=== PATIENT | male | born 1975 | race Caucasian/White ===

== ENCOUNTER 2022-06-23 08:20 | Outpatient (REF) | payer OTHER, SELFPAY ==
[2022-06-23 11:27] LABS: Bacteria Urine None Seen (None Seen); Hyaline Casts Urine 0-2 /LPF (0-2); RBC Urine 0-2 /HPF (0-2); Squamous Epithelial Cell Urine 0-2 /HPF (0-2); WBC Urine 0-5 /HPF (0-5)
[2022-06-23 11:28] LABS: MANUAL DIFF FLAG NO
[2022-06-23 11:39] LABS: Basophils Absolute Auto 0.1 X10*3/uL (0.0-0.2); Basophils Percent Auto 0.9 % (0-2); Eosinophils Absolute Auto 0.1 X10*3/uL (0.0-0.4); Hematocrit 43.1 % (42.0-52.0); Hemoglobin 14.6 g/dl (14.0-18.0); Imm Gran Abs Auto 0.01 X10*3/uL (0.00-0.03); Imm Gran Pct Auto 0.2 % (0.0-0.4); Lymphocytes Absolute Auto 1.7 X10*3/uL (1.2-4.9); Lymphocytes Percent Auto 30.9 % (20-40); Mean Corpuscular HGB Conc 33.9 g/dl (31.0-36.0); Mean Corpuscular Hemoglobin 30.2 pg (27.0-33.0); Mean Platelet Volume 10.7 fL (9.4-12.4); Monocytes Absolute Auto 0.6 X10*3/uL (0.1-1.2); Monocytes Percent Auto 10.1 % (2-11); Neutrophils Absolute Auto 3.2 x10*3/uL (2.0-8.3); Neutrophils Percent Auto 55.9 % (45-73); Platelet Count 193 X10*3/uL (160-400); Red Blood Count 4.84 X10*6/uL (4.60-5.80); Red Cell Distribution Width 12.5 % (11.0-16.0); White Blood Count 5.6 X10*3/uL (4.8-10.8)
[2022-06-23 11:40] LABS: Appearance Urine Clear; Color Urine Yellow; Glucose Urine UA Negative (Negative); Leukocyte Esterase Urine Negative (Negative); Nitrite Urine Negative (Negative); Urine Blood Negative (Negative); Urine Ketones Negative (Negative); Urine Protein Negative (Neg-Trace)
[2022-06-23 12:14] LABS: Alanine Aminotransferase 32 U/L (0-40); Albumin Level 4.4 g/dL (3.5-5.0); Alkaline Phosphatase 56 U/L (39-117); Anion Gap 15 (12-20); Aspartate Amino Transferase 23 U/L (5-37); Bilirubin Total 0.8 mg/dL (0.0-1.0); Blood Urea Nitrogen 15 mg/dL (9-16); Calcium 9.5 mg/dL (8.4-10.2); Carbon Dioxide 28 mmol/L (22-29); Chloride 104 mmol/L (96-108); Cholesterol 234 mg/dL; Estimated Glomerular Filt Rate > 60; Glucose Fasting 112 mg/dL (60-99); HDL Cholesterol 46 mg/dL; LDL Cholesterol Calculated 146 mg/dl; Sodium 143 mmol/L (135-145); Total Protein 7.4 g/dL (6.5-8.0); Triglycerides 211 mg/dL
== END 2022-06-23 08:21 | disposition home or self-care (01) ==
LOC: HO.HMGCLDS 08:20
PROVIDERS: PCP Internal Medicine; Visit Provider Internal Medicine
DX: Z00.00 Encounter for general adult medical examination without abnormal findings (principal)
CPT/HCPCS: 36415; 80053; 80061; 81001; 85025

== ENCOUNTER → 2023-02-04 13:53 | Outpatient (BNVA) | payer OTHER, SELFPAY | PROVIDERS: PCP Internal Medicine; Visit Provider Physician Assistant | DX: Z13.89 Encounter for screening for other disorder (principal) ==

== ENCOUNTER 2023-03-10 14:09 | Outpatient (REF) | payer OTHER, SELFPAY ==
--- NOTE | ~2023-03-10 | MR_ITS ---
MR LUMBAR SPINE WITHOUT CONTRAST CLINICAL INFORMATION: Intervertebral disc displacement/lumbar region. COMPARISON: Lumbar spine radiographs 02/11/2017. TECHNIQUE: MRI of the lumbar spine was obtained using routine sequences without contrast. FINDINGS: 5 nonrib-bearing lumbar-type vertebral bodies. Lumbar alignment is normal. The vertebral body heights are maintained. There is mild disc volume loss and there is disc desiccation at L1-L2, L4-L5, and L5-S1. There Modic type I endplate signal changes at L4-L5. No additional bone marrow edema. No acute fractures. Chronic endplate Schmorl's nodes throughout the lumbar spine. Conus terminates at the L1 level. Partially imaged simple left renal cyst for which no further imaging follow-up is warranted. L1-L2: There is a diffuse annular disc bulge with a superimposed left paracentral disc protrusion that compresses the traversing left L2 nerve root within the left subarticular zone and that results in moderate to severe left-sided central canal stenosis. There is mild bilateral facet arthropathy. L2-L3: There is a diffuse annular disc bulge and there is moderate left and mild right facet arthropathy. There is no central canal stenosis and there is no foraminal stenosis. L3-L4: Diffuse annular disc bulge with a superimposed large far left lateral disc protrusion that results in moderate left-sided foraminal stenosis and compression of the extraforaminal left L3 nerve root. No central canal stenosis. Mild right-sided foraminal encroachment. L4-L5: Fused annular disc bulge and moderate bilateral facet arthropathy and ligamentum flavum thickening. Findings in concert result in mild central canal stenosis and mild to moderate bilateral foraminal encroachment. L5-S1: There is a broad-based right paracentral disc protrusion that compresses the traversing right S1 nerve root within the right subarticular zone. Background annular disc bulge and bilateral facet arthropathy resulting in severe right and moderate left foraminal stenosis with compression of the exiting right L5 nerve root. MR/MR lumbar spine wo con IMPRESSION: - At L1-L2, a left paracentral disc protrusion compresses the traversing left L2 nerve root within the left subarticular zone and results in moderate to severe left-sided central canal stenosis. - At L3-L4, a large far left lateral disc protrusion results in moderate left-sided foraminal stenosis and compression of the extraforaminal left L3 nerve root. - At L5-S1, a broad-based right paracentral disc protrusion compresses the traversing right S1 nerve root within the right subarticular zone and multifactorial degenerative changes result in severe right and moderate left foraminal stenosis with compression of the exiting right L5 nerve root.
--- NOTE | ~2023-03-10 | XR_ITS ---
EXAMINATION: Pre-MRI screening x-ray CLINICAL INFORMATION: Pre-MRI COMPARISON: None. TECHNIQUE: 3 views of the orbits FINDINGS: No radiopaque foreign body about the orbits is seen. Visualized bony structures are normal. Paranasal sinuses are clear. XR/XR pre mri screening IMPRESSION: Unremarkable examination.
== END 2023-03-10 14:10 | disposition home or self-care (01) ==
LOC: HO.MRI 14:09
PROVIDERS: PCP Internal Medicine; Visit Provider Physician Assistant
DX: M51.26 Other intervertebral disc displacement, lumbar region (principal)
CPT/HCPCS: 72148

== ENCOUNTER 2023-06-17 06:05 | Day surgery (SDC) | payer OTHER, SELFPAY ==
[2023-06-09 11:30] VITALS: BP 121/82; PULSE 67; RESP 20; O2SAT 98; BMI 28.9
--- NOTE | 2023-06-09 12:01 | HO.ANESPROP2 ---
Documented by User: Mary Kate Mitchell NP 06/15/23 14:52 HPI - Anesthesia Eval Consult details Narrative: 48yo M for Left Far lateral L3-4 Lumbar Laminectomy/discectomy, 06/17/23 Otherwise healthy No recent illness No CP/SOB with >4 mets PMFSH Active Problems Active Problems: All Active Problems (Updated 06/09/23 @ 11:16 by Aurora Espana RN) Annual physical exam (Acute) Hyperlipidemia (Acute) Hyperglycemia (Acute) Spinal stenosis (Acute) Lumbar disc herniation (Acute) Past Medical History Medical History Arthritis Back pain Numbness Family History Family History (Updated 06/23/22 @ 08:19 by Liberty Castaneda MD) Father CVA (cerebral vascular accident), Onset Age: 50 Mother Urethral CA Surgical History Surgical History History of esophagogastroduodenoscopy (EGD) Social History Social History Household Members Other:: , 2 CHILDREN (17. 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 If so, by whom?: No Are you DNR?: No Advance Directives: No Advance Directives Information Provided: Yes Advance Directives on File: No Recently lost weight without trying: No Eating poorly because of decreased appetite: No Nutrition Risks: No Nutritional Risk Poor oral hygiene: No service: No Current occupational status: employed Cognitive needs: No Hearing needs: No Vision needs: Yes Meds Allergies Allergy/AdvReac Type Severity Reaction Status Date / Time No Known Allergies Allergy Verified 06/17/23 06:31 Home Medications Medication Instructions Recorded Confirmed Last Taken Type cyclobenzaprine 10 mg tablet 5 mg PO DAILY PRN Muscle Spasm 01/11/23 06/09/23 Unknown History baclofen 10 mg tablet 10 mg PO TID PRN Back Pain 06/09/23 06/09/23 Unknown History ibuprofen 800 mg tablet 800 mg PO Q8H PRN Pain 06/09/23 06/09/23 06/10/23 History meloxicam 15 mg tablet 15 mg PO DAILY PRN Pain 06/09/23 06/09/23 06/10/23 History Exam Exam Date and Time: June 09, 2023 1201 Height,Weight and Vital Signs: Height 5 ft 9 in Weight 88.904 kg Last Vital Signs Pulse 67 06/09/23 11:30 Resp 20 06/09/23 11:30 BP 121/82 06/09/23 11:30 Pulse Ox 98 06/09/23 11:30 O2 Del Method Room Air 06/09/23 11:30 Airway Mallampati Class: III TM Dist: >3cm Neck ROM: Full Loose/Missing/Broken Teeth: Yes (1 pulled molars) Heart: RRR Lungs: CTAB Assessment and Plan Assessment Anesthesia Assessment: Anesthesia Plan Discussed and PAT Visit Documented by User: Osmel Boyd MD 06/17/23 07:22 [facility] Past Medical History Medical History Arthritis Back pain Numbness Family History Family History (Updated 06/23/22 @ 08:19 by Liberty Castaneda MD) Father CVA (cerebral vascular accident), Onset Age: 50 Mother Urethral CA Family history of problems with anesthesia: No Surgical History Surgical History History of esophagogastroduodenoscopy (EGD) History of Problems with Anesthesia: No Social History Social History Household Members Other:: , 2 CHILDREN (17. 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 If so, by whom?: No Are you DNR?: No Advance Directives: No Advance Directives Information Provided: Yes Advance Directives on File: No Recently lost weight without trying: No Eating poorly because of decreased appetite: No Nutrition Risks: No Nutritional Risk Poor oral hygiene: No service: No Current occupational status: employed Cognitive needs: No Hearing needs: No Vision needs: Yes Meds Allergies Allergy/AdvReac Type Severity Reaction Status Date / Time No Known Allergies Allergy Verified 06/17/23 06:31 Home Medications Medication Instructions Recorded Confirmed Last Taken Type cyclobenzaprine 10 mg tablet 5 mg PO DAILY PRN Muscle Spasm 01/11/23 06/09/23 Unknown History baclofen 10 mg tablet 10 mg PO TID PRN Back Pain 06/09/23 06/09/23 Unknown History ibuprofen 800 mg tablet 800 mg PO Q8H PRN Pain 06/09/23 06/09/23 06/10/23 History meloxicam 15 mg tablet 15 mg PO DAILY PRN Pain 06/09/23 06/09/23 06/10/23 History Assessment and Plan Final Anesthetic Review Family History of Problems with Anesthesia: No History of Problems with Anesthesia: No NPO: Yes ASA Class: II Final Preanesthetic Review: No Changes in Pt Med Stat, Meds/Allgs Chart Reviewed, Consent Obtained/Reviewed and Anes Risks/Benef Reviewed Patient Risk: Intermediate Procedure Risk: Intermediate Anesthetic Plan Anesthetic Plan: GA and Agree w/ Assess. and Plan Disposition: Standard PACU
[2023-06-17] VITALS (17 sets, daily range): BP systolic 90–148; BP diastolic 54–91; PULSE 61–77; RESP 11–28; TEMP 36.2–36.4; O2SAT 94–99
--- NOTE | ~2023-06-17 | FL_ITS ---
EXAMINATION: XR FLUOROSCOPY WITH IMAGES CLINICAL INFORMATION: L3-L4 lumbar laminectomy COMPARISON: Lumbar spine x-ray from 2016 and lumbar spine MRI February 2023 TECHNIQUE: FT: 7.7 seconds Images: 1 Dose: 11.6 mGy DAP: N/A *performed by Dr. Gonzales FINDINGS: Single lateral image demonstrates surgical instrument and marker placement at the L3-L4 disc space level. FL/FL guidance in OR IMPRESSION: Fluoroscopy guidance for lumbar spine surgery.
[2023-06-17] MEDS: Lactated Ringers 1,000 ML 100 ML IVCONT (06:20)
--- NOTE | 2023-06-17 06:58 | MHC.SHP ---
Pre-Procedural Eval Section A Date of Service: 06/17/23 Section B Chief Complaint: Other intervertebral disc displacement, lumbar reg Relevant Family History (Specify if Yes): No Allergies: Allergies Allergy/AdvReac Type Severity Reaction Status Date / Time No Known Allergies Allergy Verified 06/17/23 06:31 Review of Systems Sugical H&P ROS: Negative: Constitution, Cardiovascular, Respiratory, Neurological, Psychiatric, Hem-Onc, Allergic/Immunologic, Gastrointestinal, Genitourinary, Musculoskeletal, Integumentary, Endocrine and Eyes/Ears/Nose/Throat Exam Surgical H&P Exam: Not Evaluated: HEENT, Not Evaluated: Heart, Not Evaluated: Lungs, Not Evaluated: Extremities, Not Evaluated: Abdomen, Not Evaluated: Skin and Not Evaluated: Neurological Plan I have reviewed the history and physical and performed a pertinent physical examination on my patient. No changes have occurred unless specified. Plan remains the same, far lateral left L3-4 diskectomy using Metrx tubes Time Spent With Patient Time: Total time managing care of this patient today _10___ minutes.
[2023-06-17] MEDS: methocarbamoL 750 MG TABLET PO (07:01)
[2023-06-17] MEDS: Gabapentin 300 MG CAPSULE PO (07:01)
--- NOTE | 2023-06-17 09:02 | PM.DS ---
DS: Providers Provider Date of Service: 06/17/23 Primary care physician: Liberty Castaneda MD DS: Diagnosis Discharge Diagnosis (1) S/P lumbar microdiscectomy: Status: Acute DS: Summary Time Spent with Patient Time attestation: Total time managing care of this patient today ____ minutes. Discharge coordination time: Less than 30 minutes Quality: Safe Use of Opioids Does Pt have an Active Cancer Diagnosis on the Problem List?: No Quality: Stroke Does the patient have a stroke diagnosis?: No Physical Exam Vital Signs: Vital Signs: Last Vital Signs Temp 97.6 F 06/17/23 06:30 Pulse 75 06/17/23 06:30 Resp 18 06/17/23 06:30 BP 143/91 H 06/17/23 06:30 Pulse Ox 97 06/17/23 06:30 O2 Del Method Room Air 06/17/23 06:30 BMI result Body Mass Index 28.9 Discharge Plan Discharge Patient Disposition: Home, Self-Care Referrals: Liberty Castaneda MD [Primary Care Provider] - 1 Week Discharge Medications: New oxycodone 5 mg tablet 5 mg PO Q6H PRN (Reason: severe pain) Qty: 20 0RF Rx Instructions: Partial Fill upon patient request. Continued baclofen 10 mg tablet 10 mg PO TID PRN (Reason: Back Pain) ibuprofen 800 mg Tablet 800 mg PO Q8H PRN (Reason: Pain) cyclobenzaprine 10 mg tablet 5 mg PO DAILY PRN (Reason: Muscle Spasm) Held meloxicam 15 mg tablet 15 mg PO DAILY PRN (Reason: Pain) Hold Instructions: Resume on 06/24/23. Discharge Orders: Discharge Order (Routine); Ordered 06/17/23 Ordered By: Jose Martines Diet: Advance to usual diet Activity on Discharge: As tolerated Activity Restrictions/Additional Instructions: After your spinal surgery we ask you to observe the following restrictions/guidelines: Activity: It is normal to feel some discomfort as you increase your activity, but that will improve with time. We ask you avoid heavy lifting or acitivities that cause pain. As a general rule, 8lbs is a safe limit for lifting right after surgery. Walk as much as you feel comfortable but not to exhaustion. You will feel extra tired the first few days after surgery. Stay well hydrated. It is OK to walk up and down stairs You may return to driving when you are off narcotics (such as vicodin, oxycodone, dilaudid, etc), and you are back to normal functional capacity. If you have any concerns please check with office before driving. Return to work is specific to each patient and each surgery, so please speak with your doctor/PA at first follow up. Please bring paperwork such as FMLA at that time if you need it filled out. Medications: We will give you a short supply of narcotics after surgery (usually one weeks worth). If you need more please call the office but do not use more than prescribed. You will need to give our office 48 hours notice if you need narcotics refilled and we do not fill narcotics on weekends or evenings. If you are on a narcotic, it is a good idea to take a stool softener such as colace or senna to avoid constipation If you take blood thinner such as aspirin, Plavix, Coumadin, Effient, Eliquis etc for conditions such as Afib, DVT, Pulmonary embolus, coronary disease, stents etc please speak with your surgeon about specific details as to when you can resume these medications. You can resume NSAIDs on post op day 1 (eg: Motrin, Naproxen, etc). Follow up: Please call the office, , after surgery to arrange a 3 week follow up for wound check. Wound Care: You may remove your dressing on the first day after surgery. You may leave open to air. Please do not remove the steri strips underneath. they will fall off on their own in one week. IT IS NORMAL FOR THE WOUND TO OOZE OR BE BLOODY FOR A FEW DAYS AFTER SURGERY. IF THIS HAPPENS JUST PLACE NEW DRESSING OVER IT TO AVOID STAINING CLOTHES. You may shower on post op day # 1 We ask that you do not let the water soak the wound. If it does get wet, just towel dry lightly. Please do not scrub your incision or place any type of chemical/ointment on the wound. No tub baths, pools or jacuzzis for one month. If you have any leaking or redness from your wound, or fevers, please call office
--- NOTE | 2023-06-17 09:06 | P.OP_ITS ---
Operative Note Operative Note Date of Service: 06/17/23 Narrative: Preop diagnosis: lumbar disc herniation L3-4, extraforaminal( far lateral) Postop diagnosis: same Procedure: L3-4 lumbar microdiskectomy, extraforaminal approach with microscope Description of procedure: This 48-year-old male suffering from a left lumbar radiculopathy due to an L3-4 extraforaminallumbar disc herniation compressing the left L3 nerve root. He was offered a lumbar microdiskectomy through an extraforaminal approach. Procedure complications were explained. He was consented. He was brought to the operating room and endotracheally intubated. He was turned in the prone position on Cesar frame. Prepped and drape was done Follow-up by time-out. The lateral border of the L3-4 facet joint was marked on the skin With x-ray. A left paramedian incision was made. The muscle fascia was opened. Sequential dilators were inserted followed by a 18 mm metrx tube. the lateral border of the L3-4 facet joint as well as the transverse process of L3 and L4 were exposed. The microscope was brought in. The lateral part of facet joint was resected with a high-speed drill. The medial border of the L4 pedicle was identified as well as the foramen. I went into the Kambin's triangle and exposed the L3-4 disc. An Annulotomy was done after which with a straight and curved pituitary several fragments of disc herniation were removed. A nerve hook could be easily passed under the L3 nerve root as sign of adequate decompression. Physician assistant tennis professional took over the procedure and performed hemostasis and closure of the incision in 2 layers. Steri-Strips were used to approximate the incision. An Oppsite with tegaderm was used to cover the incision. All sponge needle counts were correct. Patient was extubated and transported in stable this to recovery room. Surgeon: David Gonzales MD Assist: Reza LOMBARDI Anesthesia: general Estimated blood loss: minimal Specimen: none Deposition: Discharge home
[2023-06-17] MEDS: HYDROmorphone HCl 0.5 MG/0.5 ML SYRINGE 0.25 MG IVPUSH ×4 (10:19→10:36)
== END 2023-06-17 12:09 | disposition home or self-care (01) ==
PROVIDERS: PCP Internal Medicine; Visit Provider Neurological Surgery
PROC: (CPT 63056; principal; 2023-06-17 07:30)
DX: M51.26 Other intervertebral disc displacement, lumbar region (principal); G89.29 Other chronic pain; Z79.899 Other long term (current) drug therapy
CPT/HCPCS: 63056; J0131; J0690; J1100; J1170; J1885; J2405

== ENCOUNTER → 2023-06-17 06:05 | Outpatient (BNV) | payer OTHER, SELFPAY | PROVIDERS: PCP Internal Medicine; Visit Provider Physician Assistant | DX: M51.16 Intervertebral disc disorders with radiculopathy, lumbar region (principal) | CPT/HCPCS: 63056 ==

== ENCOUNTER 2023-07-09 12:53 | Outpatient (AMB) | payer OTHER, SELFPAY ==
--- NOTE | 2023-07-09 13:09 | HO.SPINEOV ---
Intake Intake Visit Reasons: 1st post op Intake Note: Mr. Bradley is here today for his 1st post-op visit. Cra Officer Required: No Allergies No Known Allergies Allergy (Verified 06/17/23 06:31) Assessment & Plan Assessment & Plan (1) S/P lumbar microdiscectomy: Code(s): Z98.890 - Other specified postprocedural states Plan Procedure: L3-4 lumbar microdiskectomy. Desmond comes in today for his 1st postoperative visit. He reports he is very satisfied with the surgery and feels much better than he did pre-operatively. The patient reports he is up walking around is otherwise doing well. He reports no pain in his left leg left thigh and feels that this is the 1st time he has not had back and leg pain in a very long time. He has not needed to utilize any medication for the pain since his 1st few days postoperative. He is completing a large majority of his ADLs at home, and states that he has been able to carry grocery bags and take out the trash without any issues. He did inquire about going to the gym and doing moderate yard work, which I suggested against until he has more time to heal. He was advised to return to normal activity as tolerated and to not overdo it at this time with excessive exercise or work. He has full strength 5/5 UE / LE. Back dressings have some staining without signs of hematoma. No active sanguineous drainage. Area is dry. We will follow-up with the patient in 6 weeks for his 2nd postoperative visit. At that time we will get x-rays to review with the patient. Total amount of time spent in this visit was 20 minutes in discussion of symptoms, intraoperative imaging results and subsequent plan of care Jose Gonzales MD,PhD [facility] Orders: Orders XR lumbar spine 4V min 07/30/23 Z98.890 - Other specified postprocedural states Coding Level of Care Code Est Pt Level 3 (44107) Diagnoses S/P lumbar microdiscectomy Z98.890
== END 2023-07-09 13:29 | disposition home or self-care (01) ==
PROVIDERS: PCP Internal Medicine; Visit Provider Physician Assistant
DX: Z98.890 Other specified postprocedural states (principal)
CPT/HCPCS: 99024

== ENCOUNTER → 2023-07-09 12:53 | Outpatient (BNVA) | payer OTHER, SELFPAY | PROVIDERS: PCP Internal Medicine; Visit Provider Physician Assistant ==

== ENCOUNTER 2023-07-30 08:00 | Outpatient (REF) | payer OTHER, SELFPAY | END 2023-07-30 08:01 | disposition home or self-care (01) | LOC: HO.HOSX 08:00 | PROVIDERS: Visit Provider Physician Assistant | DX: Z13.89 Encounter for screening for other disorder (principal) ==

== ENCOUNTER 2023-08-20 10:27 | Outpatient (AMB) | payer OTHER, SELFPAY ==
--- NOTE | 2023-08-20 10:49 | MHC.OFFVIS ---
Intake Intake Visit Reasons: 2nd post op with xrays Intake Note: pt here for his 2nd post op with Xrays Forestry Pilot Required: No Allergies No Known Allergies Allergy (Verified 06/17/23 06:31) PFSH Medical History Numbness Back pain Arthritis Surgical History (Updated 06/17/23 @ 09:04 by MARIA C Leonard) History of esophagogastroduodenoscopy (EGD) Family History (Updated 06/23/22 @ 08:19 by Liberty Castaenda MD) Father CVA (cerebral vascular accident), Onset Age: 50 Mother Urethral CA Social History Household Members Other:: , 2 CHILDREN (17. 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 Desmond comes in today for his 2nd postoperative visit. He continues to do very well. He continues to report that his radicular symptoms are gone. He has been able to essentially returned to normal activity. He has been doing yard work, mowing his lawn, and going for walks almost daily. He did not return to the gym as we had previously discussed. He was encouraged to refrain from weightlifting but informed that he absolutely can exercise going forward. At this time he is completely asymptomatic and does not require any physical therapy or other interventions at this time. Full strength UE & LE. Mobility is intact. No neurological deficits Sensation grossly intact. Patient is able to ambulate well, rises from a seated position without difficulty. Incision site is well healed with no signs of drainage. We no longer require further follow up for Desmond. He may be discharged as a patient. He was informed that he may call us back at any point in the future if he feels he needs to come and see us. Jose Gonzales MD,PhD [facility] Coding Level of Care Code Global (55015) Diagnoses S/P lumbar microdiscectomy Z98.890
== END 2023-08-20 11:20 | disposition home or self-care (01) ==
PROVIDERS: PCP Internal Medicine; Visit Provider Physician Assistant
DX: Z98.890 Other specified postprocedural states (principal)
CPT/HCPCS: 99024

== ENCOUNTER 2023-08-20 10:27 | Outpatient (REF) | payer OTHER, SELFPAY | END 2023-08-20 10:28 | disposition home or self-care (01) | LOC: HO.HOSX 10:27 | PROVIDERS: Visit Provider Physician Assistant | DX: Z13.89 Encounter for screening for other disorder (principal) ==

== ENCOUNTER 2023-08-20 13:27 | Outpatient (REF) | payer OTHER, SELFPAY ==
--- NOTE | ~2023-08-20 | XR_ITS ---
EXAMINATION: XR LUMBOSACRAL SPINE WITH OBLIQUES CLINICAL INFORMATION: Postprocedural status, L3-L4 lumbar laminectomy 06/17/2023 COMPARISON: Fluoroscopy 06/17/2023. MR lumbar spine 03/10/2023. Radiographs lumbar spine 02/11/2017. TECHNIQUE: AP, lateral, flexion and extension views of the lumbar spine. FINDINGS: Mild dextroscoliosis of the lumbar spine. Facet arthritis in the mid to lower lumbar spine. Multilevel lumbar spondylosis. Mild loss of disc space height at L1-L2, L4-L5 and L5-S1.Grade 1 retrolisthesis of L1 on L2. Minimal grade 1 retrolisthesis of L2 on L3. Limited visualization of the S1 as well as incompletely imaged on some views. XR/XR lumbar spine 4V min IMPRESSION: Multilevel lumbar spondylosis.
== END 2023-08-20 13:28 | disposition home or self-care (01) ==
LOC: HO.HOSX 13:27
PROVIDERS: Visit Provider Physician Assistant
DX: Z98.890 Other specified postprocedural states (principal)
CPT/HCPCS: 72110

== ENCOUNTER 2024-07-11 13:50 | Outpatient (AMB) | payer BC, SELFPAY ==
--- NOTE | 2024-07-11 13:59 | HO.SPINEOV ---
Intake Visit Reasons: back pain, trouble sitting/walking Intake Note: Mr. Bradley is here today c/o back pain and having trouble with walking. Instructor Modeling Required: No Allergies No Known Allergies Allergy (Verified 07/11/24 14:00) Assessment & Plan Assessment & Plan (1) Lumbar radiculopathy: Code(s): M54.16 - Radiculopathy, lumbar region Category: Medical Plan HPI: Desmond is a pleasant 49 year old male who is known to our service and had a L3-4 lumbar microdiskectomy completed about a year ago. At that time he has severe shooting pain into his left anterior thigh. He had good resolution of this and was essentially back to normal activity by the time he completed postop follow-up. He reports no real issues until last Wednesday when he began feeling spasms in his low back followed by severe shooting pain into his right anterior thigh. He was unable to stand from a seated position or walk until he started using a TENS unit, which dulled the pain enough for him to begin ambulating again. He is wearing this in office today. He has tried stretching/walking and found that this only seems to exacerbate his pain. He has been trying [id number] ibuprofen/Tylenol without significant relief of symptoms. He also attempted to utilize a prescription of muscle relaxers which was not helpful. He reports that the pain is once again excruciating and feels how his left thigh felt before his last surgery. He denies any perineal numbness/tingling, denies any bowel/bladder incontinence. Social Hx & PMH: No newly disclosed medications. No nicotine use/substance use. Exam: On examination Desmond walks very slowly with an antalgic gait favoring the right side. He also sits favoring his right side. He is able to get up on the exam table very slowly. He has 4/5 strength with right-sided iliopsoas testing and elicits pain when testing this. The rest of his lower extremity exam is 5/5. He has a strongly (+) right-sided straight leg raise. Left side appears normal. Impression: Desmond's history and examination are highly suspicious for recurrent disc herniation at his previous operative site. I believe it is very likely that the herniation may be compressing more on the right versus the left this time. He feels the pain is very similar to his previous herniation. He has tried several different forms of conservative treatment. I will be sending him for an MRI of the lumbar spine to evaluate for an acute recurrent disc herniation at his previous surgical site. I will follow up with him via a phone call once radiology reads his MRI. We discussed red flag symptoms for cauda equina, which he understands and will call the clinic if any crop up. Jose Gonzales MD,PhD [facility] Medications: New methylprednisolone (Medrol (Geoff)) PO PER PKG DIR 21 ea 0RF Coding Level of Care Code Est Pt Level 3 (13736) Diagnoses Lumbar radiculopathy M54.16
== END 2024-07-11 14:37 | disposition home or self-care (01) ==
PROVIDERS: PCP Internal Medicine; Visit Provider Physician Assistant
DX: M54.16 Radiculopathy, lumbar region (principal)
CPT/HCPCS: 99213

== ENCOUNTER → 2024-07-11 13:50 | Outpatient (BNVA) | payer OTHER, SELFPAY | PROVIDERS: PCP Internal Medicine; Visit Provider Physician Assistant ==

== ENCOUNTER 2024-07-14 18:51 | Outpatient (REF) | payer BC, SELFPAY ==
--- NOTE | ~2024-07-14 | MR_ITS ---
EXAMINATION: MR LUMBAR SPINE WITHOUT CONTRAST CLINICAL INFORMATION: Lumbar radiculopathy. COMPARISON: MR lumbar spine 03/10/2023. TECHNIQUE: MRI of the lumbar spine was obtained using routine sequences without contrast. FINDINGS: Alignment is normal. Vertebral body heights are preserved. No acute bone marrow signal changes. There is slight loss of intervertebral disc height and T2 signal intensity at multiple levels related to disc degeneration. The tip of the conus medullaris is located at L1-L2. No mass effect on the conus. Visualized distal cord signal intensity is normal. At L1-L2 there is a broad left central protrusion superimposed upon a bulging disc causing indentation of the thecal sac and moderate to severe canal stenosis. Subarticular zone narrowing causes displacement and possible compression of the left traversing L2 nerve roots. No foraminal nerve root compression. At L2-L3 there is a slightly bulging disc. No canal stenosis. No mass effect on the traversing or foraminal nerve roots. At L3-L4 there is a broad left foraminal to far lateral protrusion superimposed upon a bulging disc. Bilateral facet degenerative change. No canal stenosis. Mild mass effect on the extra foraminal segment of the left L3 nerve root. At L4-L5 there is a right central protrusion superimposed upon a bulging disc. Bilateral facet degenerative change. No canal stenosis. There is abutment of the right traversing L5 nerve roots. Mild mass effect on the right L4 foraminal nerve root. At L5-S1 there is a broad shallow central extrusion superimposed upon a bulging disc with 0.4 cm caudal subligamentous extension of extruded disc material. No canal stenosis. Subtle abutment of both traversing S1 nerve roots. Mild to moderate mass effect on both L5 foraminal nerve roots. Limited visualization of the retroperitoneal anatomy reveals no abnormal finding. Psoas and paraspinal muscle groups are symmetric. MR/MR lumbar spine wo con IMPRESSION: There is multilevel degenerative spondylosis of the lumbar spine. A broad left central protrusion at L1-L2 causes moderate to severe canal stenosis with displacement and possible compression of the left traversing L2 nerve roots. Otherwise no canal compromise within the lumbar spine. A left foraminal to far lateral protrusion at L3-L4 causes mild mass effect on the extraforaminal segment of the left L3 nerve roots. Mild to moderate mass effect on both L5 foraminal nerve roots related to degenerative changes at L5-S1. Electronically signed by: Arthur Toscano MD 07/14/2024 09:26 PM EDT RP
== END 2024-07-14 18:52 | disposition home or self-care (01) ==
LOC: HO.MRI 18:51
PROVIDERS: PCP Internal Medicine; Visit Provider Physician Assistant
DX: M54.16 Radiculopathy, lumbar region (principal)
CPT/HCPCS: 72148

== ENCOUNTER 2024-07-17 14:03 | Outpatient (AMB) | payer BC, SELFPAY ==
[2024-07-17 14:08] VITALS: BP 118/76; PULSE 86; O2SAT 98; BMI 28.9
--- NOTE | 2024-07-17 14:08 | A.OFFPC_ITS ---
Vital Signs 07/17/24 14:08 Height 5 ft 9 in Weight 196 lb BMI 28.9 BP 118/76 Blood Pressure Location Rt brachial Position Sitting Pulse 86 Pulse Source Pulse Oximeter Pulse Oximetry (%) 98 Oxygen Delivery Method Room Air Intake Visit Reasons: R/S From 07/14 back pain Intake Note: Pt is here today for a sick visit. Pt c/o lower back pain. P Allergies No Known Allergies Allergy (Verified 07/17/24 14:13) Medication List - Last Reconciled 07/17/24 by Liberty Castaneda MD ibuprofen 800 mg PO Q8H PRN methylprednisolone (Medrol (Geoff)) PO PER PKG DIR Tobacco use date assessed: 07/17/24 Dental Screening Dental Screen Date: 07/17/24 Did you have a dental visit in the last 12 months?: Yes Did you have a dental problem in the last 6 months where you did not have access to dental care?: No Was dental information given to patient?: Patient has dentist HPI R/S From 07/14 back pain HPI Details Patient presents for the follow-up of acute sciatica pain radiating down to right leg developed 2 weeks ago. Patient took Medrol pack and has been taking ibuprofen and slowly improving. He reports persistent pain worse when walking or sitting, better when laying down. Patient denies weakness in extremities, change in bladder or bowel function. MRI shows multiple disc protrusions from L1 through S1, moderate to severe left-sided central canal stenosis at L1-L2 level in change from 2022, at L3-4 a broad left foraminal to far lateral protrusion superimposed upon a bulging disc, mild mass effect on the extraforaminal segment of left L3 nerve root, at L4-L5 there is a right central protrusion superimposed upon bulging disc, no canal stenosis, there is abutment of the right transversing L5 nerve roots and mild mass effect on the right L4 foraminal nerve root, at L5-S1 no canal stenosis, abutment of both transversing S1 nerve roots and mild to moderate mass effect on both L5 foraminal nerve roots. Patient underwent L3-4 lumbar microdiskectomy last May with the improvement of left sciatica symptoms but residual numbness on the left lower extremity. PFSH Medical History (Updated 07/11/24 @ 14:17 by MARIA C Leonard) Numbness Back pain Arthritis Surgical History (Updated 07/17/24 @ 15:14 by Liberty Castaneda MD) History of esophagogastroduodenoscopy (EGD) Family History (Updated 06/23/22 @ 08:19 by Liberty Castaneda MD) Father CVA (cerebral vascular accident), Onset Age: 50 Mother Urethral CA Social History Household Members Other:: , 2 CHILDREN (17. 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 1. Little interest or pleasure in doing things: not at all 2. Feeling down, depressed, or hopeless: not at all 3. Trouble falling or staying asleep, or sleeping too much: not at all 4. Feeling tired or having little energy: not at all 5. Poor appetite or overeating: nearly every day 6. Feeling bad about yourself - or that you are a failure or have let yourself or your family down: more than half the days 7. Trouble concentrating on things, such as reading the newspaper or watching television: not at all 8. Moving or speaking so slowly that other people could have noticed. Or the opposite - being so fidgety or restless that you have been moving around a lot more than usual: not at all 9. Thoughts that you would be better off or of hurting yourself in some way: not at all Total score: 5 Depression Screening Interpretation: Negative Depression Screening Done: Yes 39316 - PHQ-9 Billing: Yes Source: Developed by Drs. Arthur Joyner, Sharita Lowery, Glen Varma and colleagues, with an educational ethan from [employer]. Thrive Questionnaire Date Thrive assessed: 07/17/24 I am a: Patient What is your living situation today?: I have a steady place to live Within the past 12 months, did the food you bought not last and you didn't have the money to get more?: Never true Within the past 12 months, did you worry whether your food would run out before you got money to buy more?: Never true Do you have trouble paying for medicines?: No Do you have trouble getting transportation to medical appointments?: No Do you have trouble paying your heating and electricity bill?: No Do you have trouble taking care of your child, family member or friend?: No Do you have trouble with day-to-day activities such as bathing, preparing meals, shopping, managing finances, etc.?: No Are you currently unemployed and looking for a job?: No Are you interested in more education?: No Please select the resources that you would like help with: None Currently or been in a relationship where the following occur: I choose not to answer THRIVE Score: 0 AUDIT C Alcohol Use Questionnaire (AUDIT-C) 1. How often do you have a drink containing alcohol?: 2-4 times a month 2. How many drinks containing alcohol do you have on a typical day when you are drinking?: 3 or 4 3. How often do you have six or more drinks on one occasion?: Never Total Score: 3 SANTIAGO-7 AMB Questionnaire SANTIAGO-7 Date SANTIAGO - 7 assessed: 07/17/24 Feeling nervous, anxious, or on edge: 0 = Not at all Not being able to stop or control worryin = Not at all Worrying too much about different things: 0 = Not at all Trouble relaxin = Not at all Being so restless that it is hard to sit still: 0 = Not at all Becoming easily annoyed or irritable: 1 = Several days Feeling afraid as if something awful might happen: 0 = Not at all Total SANTIAGO-7 score (0-4 normal; 5-9 mild; 10-14 moderate; 15-21 severe): 1 Source: Developed by Drs. Arthur Joyner, Sharita Lowery, Glen Varma and colleagues, with an educational ethan from [employer]. SANTIAGO-7 Assessment Billing SANTIAGO-7 Assessment Tool: SANTIAGO-7 Assessment 29661 Review of Systems Const All systems reviewed & are unremarkable except as noted in HPI and below Card Reports no additional complaints Resp Reports no additional complaints GI Reports no additional complaints Reports no additional complaints Physical exam (Primary Care) Vital Signs: Last Vital Signs Pulse 86 07/17/24 14:08 BP 118/76 07/17/24 14:08 Pulse Ox 98 07/17/24 14:08 Oxygen Delivery Method Room Air 07/17/24 14:08 BMI result Body Mass Index 28.9 Tobacco/Smoking Status: Tobacco use Status Tobacco use date assessed 07/17/24 07/17/24 14:17 Patient Tobacco Use Status Never used Tobacco 07/17/24 14:17 e-Cigarette/Vaping Use Never Used 07/17/24 14:11 PHQ-9: PHQ-9 Score PHQ-9: Total score 5 07/17/24 14:17 Depression Screening Interpretation: Negative Thrive Assessment: Date of Thrive Assessment Date Thrive assessed 07/17/24 07/17/24 14:17 Currently or been in a relationship where the following occur: I choose not to answer Const General: no acute distress Resp Effort & Inspection: normal respiratory effort Auscultation: clear to auscultation bilaterally Cardio Rhythm: regular rhythm Heart sounds: S1 normal heart sound present and S2 normal heart sound present GI Inspection: Yes normal to inspection Palpation (GI): Soft to palpation Back/Spine/Pelvis Other: There is no spinal paraspinal tenderness, straight leg rising on the right at the 40 degree and 90 degree on the left, motor strength is 5/5 bilaterally, deep tendon reflexes are 2 to 3+ bilaterally Assessment and Plan Assessment & Plan (1) Lumbar radiculopathy: Code(s): M54.16 - Radiculopathy, lumbar region Plan: For acute sciatica patient will schedule physical therapy, he will continue ibuprofen as needed (2) S/P lumbar microdiscectomy: Comment: L3-4, Code(s): Z98.890 - Other specified postprocedural states (3) Hyperlipidemia: Code(s): E78.5 - Hyperlipidemia, unspecified Plan: LOW-CHOLESTEROL DIET DISCUSSED WITH THE PATIENT, he will return for fasting blo od work (4) Hyperglycemia: Code(s): R73.9 - Hyperglycemia, unspecified Plan: ADA diet discussed with the patient check A1c (5) Annual physical exam: Code(s): Z00.00 - Encounter for general adult medical examination without abnormal fin dings Plan: Return for physical Orders: Orders PT Evaluation and Treatment Today M54.16 - Radiculopathy, lumbar region, Z98.890 - Other specified postprocedural states Comprehensive [place]. Panel Fast Today E78.5 - Hyperlipidemia, unspecified, R73.9 - Hyperglycemia, unspecified, Z00.00 - Encounter for general adult medical examination without abnormal findings Microalbumin, Random (w Creat) Today E78.5 - Hyperlipidemia, unspecified, R73.9 - Hyperglycemia, unspecified, Z00.00 - Encounter for general adult medical examination without abnormal findings Complete Blood Count Auto Diff Today E78.5 - Hyperlipidemia, unspecified, R73.9 - Hyperglycemia, unspecified, Z00.00 - Encounter for general adult medical examination without abnormal findings Lipid Panel Today E78.5 - Hyperlipidemia, unspecified, R73.9 - Hyperglycemia, unspecified, Z00.00 - Encounter for general adult medical examination without abnormal findings PSA,Total (Free>4and<10) Today E78.5 - Hyperlipidemia, unspecified, R73.9 - Hyperglycemia, unspecified, Z00.00 - Encounter for general adult medical examination without abnormal findings Hemoglobin A1c Today E78.5 - Hyperlipidemia, unspecified, R73.9 - Hyperglycemia, unspecified, Z00.00 - Encounter for general adult medical examination without abnormal findings UA w Microscopic Today E78.5 - Hyperlipidemia, unspecified, R73.9 - Hyperglycemia, unspecified, Z00.00 - Encounter for general adult medical examination without abnormal findings Coding Level of Care Code Est Pt Level 4 (38182) Diagnoses Lumbar radiculopathy M54.16 S/P lumbar microdiscectomy Z98.890 Hyperlipidemia E78.5 Hyperglycemia R73.9 Annual physical exam Z00.00 Additional Codes SANTIAGO-7 Assessment Billing - SANTIAGO-7 Assessment Tool: SANTIAGO-7 Assessment [id number] ([id number])
== END 2024-07-17 14:47 | disposition home or self-care (01) ==
PROVIDERS: PCP Internal Medicine; Visit Provider Internal Medicine
DX: M54.16 Radiculopathy, lumbar region (principal); Z98.890 Other specified postprocedural states; E78.5 Hyperlipidemia, unspecified; R73.9 Hyperglycemia, unspecified; Z00.00 Encounter for general adult medical examination without abnormal findings

== ENCOUNTER → 2024-07-17 14:03 | Outpatient (BNVA) | payer BC, SELFPAY | PROVIDERS: PCP Internal Medicine; Visit Provider Internal Medicine | DX: M54.16 Radiculopathy, lumbar region (principal); E78.5 Hyperlipidemia, unspecified; R73.9 Hyperglycemia, unspecified; Z98.890 Other specified postprocedural states | CPT/HCPCS: 96127 ==

== ENCOUNTER 2024-07-19 08:12 | Outpatient (REF) | payer BC, SELFPAY ==
[2024-07-19 10:10] LABS: MANUAL DIFF FLAG NO
[2024-07-19 10:15] LABS: Basophils Absolute Auto 0.1 X10*3/uL (0.0-0.2); Basophils Percent Auto 0.8 % (0-2); Eosinophils Absolute Auto 0.1 X10*3/uL (0.0-0.4); Eosinophils Percent Auto 1.9 % (0-4); Hematocrit 43.9 % (42.0-52.0); Hemoglobin 15.3 g/dl (14.0-18.0); Imm Gran Abs Auto 0.02 X10*3/uL (0.00-0.03); Imm Gran Pct Auto 0.3 % (0.0-0.4); Lymphocytes Absolute Auto 3.1 X10*3/uL (1.2-4.9); Lymphocytes Percent Auto 41.5 % (20-40); Mean Corpuscular HGB Conc 34.9 g/dl (31.0-36.0); Mean Corpuscular Hemoglobin 31.2 pg (27.0-33.0); Mean Corpuscular Volume 89.4 fL (80.0-98.0); Mean Platelet Volume 10.2 fL (9.4-12.4); Monocytes Absolute Auto 0.7 X10*3/uL (0.1-1.2); Monocytes Percent Auto 9.8 % (2-11); Neutrophils Absolute Auto 3.4 x10*3/uL (2.0-8.3); Neutrophils Percent Auto 45.7 % (45-73); Platelet Count 227 X10*3/uL (160-400); Red Blood Count 4.91 X10*6/uL (4.60-5.80); Red Cell Distribution Width 12.4 % (11.0-16.0); White Blood Count 7.4 X10*3/uL (4.8-10.8)
[2024-07-19 10:32] LABS: Estimated Average Glucose 111 mg/dL; Hemoglobin A1c % 5.5 % (<6.0); Total Hemoglobin (HGBA1C) 3818.6153 umol/L
[2024-07-19 10:34] LABS: Appearance Urine Clear; Color Urine Yellow; Glucose Urine UA Negative (Negative); Leukocyte Esterase Urine Negative (Negative); Nitrite Urine Negative (Negative); PH 5.5 (5.0-9.0); Specific Gravity - Urine 1.015 (1.005-1.025); Urine Blood Negative (Negative); Urine Ketones Negative (Negative); Urine Protein Negative (Neg-Trace)
[2024-07-19 10:43] LABS: Bacteria Urine None Seen (None Seen); Hyaline Casts Urine 0-2 /LPF (0-2); RBC Urine 0-2 /HPF (0-2); Squamous Epithelial Cell Urine 0-2 /HPF (0-2); WBC Urine 0-5 /HPF (0-5)
[2024-07-19 10:54] LABS: PSA,Total (Free>4and<10) 3.65 ng/mL (0.00-4.00)
[2024-07-19 10:59] LABS: Alanine Aminotransferase 32 U/L (0-40); Albumin Level 4.4 g/dL (3.5-5.0); Alkaline Phosphatase 53 U/L (39-117); Anion Gap 11 (12-20); Aspartate Amino Transferase 20 U/L (5-37); Bilirubin Total 0.7 mg/dL (0.0-1.0); Blood Urea Nitrogen 17 mg/dL (9-16); Calcium 9.4 mg/dL (8.4-10.2); Carbon Dioxide 29 mmol/L (22-29); Chloride 105 mmol/L (96-108); Cholesterol 227 mg/dL (<200); Estimated Glomerular Filt Rate > 60; Glucose Fasting 87 mg/dL (60-99); HDL Cholesterol 47 mg/dL (>40); LDL Cholesterol Calculated 152 mg/dL (<100); Potassium 3.9 mmol/L (3.3-5.1); Sodium 141 mmol/L (135-145); Total Protein 7.8 g/dL (6.5-8.0); Triglycerides 140 mg/dL (<150)
[2024-07-19 11:39] LABS: Microalbum/Creatinine Ratio Ur 5.5 ug/mg cr (<30)
== END 2024-07-19 08:13 | disposition home or self-care (01) ==
LOC: HO.HMGCLDS 08:12
PROVIDERS: PCP Internal Medicine; Visit Provider Internal Medicine
DX: Z00.00 Encounter for general adult medical examination without abnormal findings (principal); R73.9 Hyperglycemia, unspecified; E78.5 Hyperlipidemia, unspecified; Z12.5 Encounter for screening for malignant neoplasm of prostate
CPT/HCPCS: 36415; 80053; 80061; 81001; 82043; 82570; 83036; 84153; 85025

== ENCOUNTER → 2024-11-28 10:05 | Outpatient (BNVA) | payer BC, SELFPAY | PROVIDERS: PCP Internal Medicine; Visit Provider Nurse Practitioner Family ==

== ENCOUNTER 2025-07-19 08:21 | Outpatient (REF) | payer BC, SELFPAY ==
[2025-07-19 10:30] LABS: MANUAL DIFF FLAG NO
[2025-07-19 10:32] LABS: Appearance Urine Clear; Glucose Urine UA Negative (Negative); PH 6.0 (5.0-9.0); Specific Gravity - Urine 1.015 (1.005-1.025)
[2025-07-19 10:43] LABS: Hematocrit 42.9 % (42.0-52.0); Hemoglobin 14.9 g/dl (14.0-18.0); Imm Gran Abs Auto 0.01 X10*3/uL (0.00-0.03); Imm Gran Pct Auto 0.3 % (0.0-0.4); Lymphocytes Absolute Auto 1.6 X10*3/uL (1.2-4.9); Mean Corpuscular HGB Conc 34.7 g/dl (31.0-36.0); Mean Corpuscular Hemoglobin 31.3 pg (27.0-33.0); Mean Corpuscular Volume 90.1 fL (80.0-98.0); NRBC Abs Auto 0.000 X10*3/uL (0.0-0.012); NRBC Pct Auto 0.0 /100WBC (0.0-0.2); Platelet Count 201 X10*3/uL (160-400); Red Blood Count 4.76 X10*6/uL (4.60-5.80); White Blood Count 3.9 X10*3/uL (4.8-10.8)
[2025-07-19 10:47] LABS: Total Hemoglobin (HGBA1C) 3753.4027 umol/L
[2025-07-19 11:16] LABS: PSA,Total (Free>4and<10) 4.01 ng/mL (0.00-4.00)
[2025-07-19 11:21] LABS: Alanine Aminotransferase 18 U/L (0-40); Albumin Level 4.8 g/dL (3.5-5.0); Alkaline Phosphatase 51 U/L (39-117); Anion Gap 10 (12-20); Aspartate Amino Transferase 26 U/L (5-37); Blood Urea Nitrogen 12 mg/dL (9-16); Calcium 9.6 mg/dL (8.4-10.2); Carbon Dioxide 29 mmol/L (22-29); Chloride 107 mmol/L (96-108); Cholesterol 210 mg/dL (<200); Estimated Glomerular Filt Rate > 60; HDL Cholesterol 47 mg/dL (>40); Potassium 4.4 mmol/L (3.3-5.1); Sodium 142 mmol/L (135-145); Total Protein 7.6 g/dL (6.5-8.0); Triglycerides 73 mg/dL (<150)
[2025-07-20 12:09] LABS: Free Prostate Spec Ag 0.7 ng/mL; Percent Free Prostate Spec Ag 18 % (calc) (>25)
== END 2025-07-19 08:22 | disposition home or self-care (01) ==
LOC: HO.HMGCLDS 08:21
PROVIDERS: PCP Internal Medicine; Visit Provider Internal Medicine
DX: Z12.5 Encounter for screening for malignant neoplasm of prostate (principal); Z00.00 Encounter for general adult medical examination without abnormal findings; E78.5 Hyperlipidemia, unspecified; R73.9 Hyperglycemia, unspecified; E66.3 Overweight; M25.511 Pain in right shoulder; M25.512 Pain in left shoulder; Z68.22 Body mass index [BMI] 22.0-22.9, adult
CPT/HCPCS: 36415; 80053; 80061; 81001; 83036; 84153; 84154; 85025; 96127

== ENCOUNTER 2025-07-19 13:13 | Outpatient (AMB) | payer BC, SELFPAY ==
[2025-07-19 13:18] VITALS: BP 96/66; PULSE 76; RESP 18; TEMP 36.7; O2SAT 99; BMI 22.4
--- NOTE | 2025-07-19 13:18 | MHC.PC.OV ---
Vital Signs 07/19/25 13:18 Height 5 ft 9 in Weight 152 lb BMI 22.4 BP 96/66 Blood Pressure Location Rt brachial Position Sitting Respiration 18 Pulse 76 Pulse Source Pulse Oximeter Temp 98.1 F Temp Source Oral Pulse Oximetry (%) 99 Oxygen Delivery Method Room Air Intake Visit Reasons: Annual visit Intake Note: Pt is here today for PE. Allergies No Known Allergies Allergy (Verified 07/19/25 13:27) Medication List - Last Reconciled 07/19/25 by Liberty Castaneda MD bisacodyl (Dulcolax (bisacodyl)) 20 mg (4 x 5 mg) PO ONCE 1 day ibuprofen 800 mg PO Q8H PRN polyethylene glycol 3350 (Miralax) 238 grams PO ONCE Zepbound (tirzepatide (weight loss)) 7.5 mg (0.5 mL) subcut QWEEK NS Tobacco use date assessed: 07/19/25 Dental Screening Dental Screen Date: 07/19/25 Did you have a dental visit in the last 12 months?: Yes Did you have a dental problem in the last 6 months where you did not have access to dental care?: No Was dental information given to patient?: Patient has dentist HPI Annual visit HPI Details Patient presents for physical. he complains of chronic bilateral shoulder pain for 20 years and used to see orthopedic surgeon received cortisone injections in the past with good relief. Patient would like to be referred to orthopedic surgeon. Patient lost 40 lb of Zepbound and 3 months ago decrease the dose to 7.5 because of side effects and excessive weight loss. Patient has been eating well-balanced diet and is planning to start regular exercise. [facility] Medical History (Updated 07/19/25 @ 18:09 by Liberty Castaneda MD) Overweight Annual physical exam Spinal stenosis Shoulder pain, bilateral Hyperglycemia Hyperlipidemia Numbness Back pain Arthritis Surgical History (Updated 07/19/25 @ 18:03 by Liberty Castaneda MD) S/P lumbar microdiscectomy History of back surgery History of esophagogastroduodenoscopy (EGD) Family History Father CVA (cerebral vascular accident), Onset Age: 50 Mother Urethral CA Family/Other Colon cancer Social History (Reviewed 07/19/25 @ 13:25 by DANIELLE Charlton Household Members Other:: , 2 CHILDREN (17. 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 1. Little interest or pleasure in doing things: not at all 2. Feeling down, depressed, or hopeless: not at all 3. Trouble falling or staying asleep, or sleeping too much: not at all 4. Feeling tired or having little energy: not at all 5. Poor appetite or overeating: nearly every day 6. Feeling bad about yourself - or that you are a failure or have let yourself or your family down: more than half the days 7. Trouble concentrating on things, such as reading the newspaper or watching television: not at all 8. Moving or speaking so slowly that other people could have noticed. Or the opposite - being so fidgety or restless that you have been moving around a lot more than usual: not at all 9. Thoughts that you would be better off or of hurting yourself in some way: not at all Total score: 5 Depression Screening Interpretation: Negative Depression Screening Done: Yes 33077 - PHQ-9 Billing: Yes Source: Developed by Drs. Arthur Joyner, Sharita Lowery, Glen Varma and colleagues, with an educational ethan from [employer]. Thrive Questionnaire Date Thrive assessed: 07/19/25 I am a: Patient What is your living situation today?: I have a steady place to live Within the past 12 months, did the food you bought not last and you didn't have the money to get more?: Never true Within the past 12 months, did you worry whether your food would run out before you got money to buy more?: Never true Do you have trouble paying for medicines?: No Do you have trouble getting transportation to medical appointments?: No Do you have trouble paying your heating and electricity bill?: No Do you have trouble taking care of your child, family member or friend?: No Do you have trouble with day-to-day activities such as bathing, preparing meals, shopping, managing finances, etc.?: No Are you currently unemployed and looking for a job?: No Are you interested in more education?: No Please select the resources that you would like help with: None Currently or been in a relationship where the following occur: I choose not to answer THRIVE Score: 0 AUDIT C Alcohol Use Questionnaire (AUDIT-C) 1. How often do you have a drink containing alcohol?: Monthly or less 2. How many drinks containing alcohol do you have on a typical day when you are drinking?: 3 or 4 3. How often do you have six or more drinks on one occasion?: Never Total Score: 2 SANTIAGO-7 AMB Questionnaire SANTIAGO-7 Date SANTIAGO - 7 assessed: 07/19/25 Feeling nervous, anxious, or on edge: 0 = Not at all Not being able to stop or control worryin = Not at all Worrying too much about different things: 0 = Not at all Trouble relaxin = Not at all Being so restless that it is hard to sit still: 0 = Not at all Becoming easily annoyed or irritable: 1 = Several days Feeling afraid as if something awful might happen: 0 = Not at all Total SANTIAGO-7 score (0-4 normal; 5-9 mild; 10-14 moderate; 15-21 severe): 1 Source: Developed by Drs. Arthur Joyner, Sharita Lowery, Glen Varma and colleagues, with an educational ethan from [employer]. SANTIAGO-7 Assessment Billing SANTIAGO-7 Assessment Tool: SANTIAGO-7 Assessment 45530 Review of Systems Const All systems reviewed & are unremarkable except as noted in HPI and below Eyes Reports no additional complaints ENT Reports no additional complaints Card Reports no additional complaints GI Reports no additional complaints Reports no additional complaints Musc Reports no additional complaints Physical exam (Primary Care) Vital Signs: Last Vital Signs Temp 98.1 F 07/19/25 13:18 Pulse 76 07/19/25 13:18 Resp 18 07/19/25 13:18 BP 96/66 07/19/25 13:18 Pulse Ox 99 07/19/25 13:18 Oxygen Delivery Method Room Air 07/19/25 13:18 BMI result Body Mass Index 22.4 Tobacco/Smoking Status: Tobacco use Status Tobacco use date assessed 07/19/25 07/19/25 13:27 Patient Tobacco Use Status Never used Tobacco 07/19/25 13:27 e-Cigarette/Vaping Use Never Used 07/19/25 13:19 PHQ-9: PHQ-9 Score PHQ-9: Total score 5 07/19/25 13:52 Depression Screening Interpretation: Negative Thrive Assessment: Date of Thrive Assessment Date Thrive assessed 07/19/25 07/19/25 13:27 Currently or been in a relationship where the following occur: I choose not to answer Const General: no acute distress HENMT Head: Yes normal to inspection Face and sinus: Yes normal facial exam Mouth: Normal oral and palatal mucosa present Eyes General: appearance normal, both eyes and all related structures Neck Neck: Yes no lymphadenopathy and Yes supple Resp Effort & Inspection: normal respiratory effort Auscultation: clear to auscultation bilaterally Cardio Rhythm: regular rhythm Heart sounds: S1 normal heart sound present and S2 normal heart sound present GI Inspection: Yes normal to inspection Palpation (GI): Soft to palpation Percussion: Yes normal to percussion Auscultation: normal bowel sounds Coding Level of Care Code Est Pt Prev Care 40-64y(90128) Diagnoses Hyperlipidemia E78.5 Annual physical exam Z00.00 Shoulder pain, bilateral M25.511; M25.512 Overweight E66.3 Additional Codes SANTIAGO-7 Assessment Billing - SANTIAGO-7 Assessment Tool: SANTIAGO-7 Assessment 74334 ([id number]) PHQ-9 - 59257 - PHQ-9 Billing: Yes ([id number]) Assessment & Plan Assessment & Plan (1) Hyperlipidemia: Code(s): E78.5 - Hyperlipidemia, unspecified Category: Medical Plan: Low-cholesterol diet increase physical activity discussed with the patient. Patient will try fish oil supplement. He will repeat lipid profile in 6 months. (2) Annual physical exam: Code(s): Z00.00 - Encounter for general adult medical examination without abnormal findings Category: Medical Plan: Well-balanced diet regular physical activity discussed with the patient. He is waiting for a colonoscopy scheduled for next month (3) Shoulder pain, bilateral: Code(s): M25.511 - Pain in right shoulder; M25.512 - Pain in left shoulder Category: Medical Plan: For chronic bilateral shoulder pain obtain x-ray of both shoulders and referred to orthopedic surgeon (4) Overweight: Comment: Lost 40 lb on Zepbound Code(s): E66.3 - Overweight Category: Medical Plan: Continue current lower caloric intake and patient will start exercise. He will continue 7.5 mg of Zepbound and will titrate the dose down if his weight stay stable Orders: Orders Lipid Panel 6 Months E78.5 - Hyperlipidemia, unspecified, Z00.00 - Encounter for general adult medical examination without abnormal findings PSA,Total (Free>4and<10) 6 Months E78.5 - Hyperlipidemia, unspecified, Z00.00 - Encounter for general adult medical examination without abnormal findings XR Shoulder Juvencio min 2V Today M25.511 - Pain in right shoulder, M25.512 - Pain in left shoulder Referrals Orthopedics Referral M25.511 - Pain in right shoulder, M25.512 - Pain in left shoulder
== END 2025-07-19 13:54 | disposition home or self-care (01) ==
LOC: HO.HMCC 13:14
PROVIDERS: PCP Internal Medicine; Visit Provider Internal Medicine
DX: E78.5 Hyperlipidemia, unspecified (principal); Z00.00 Encounter for general adult medical examination without abnormal findings; M25.511 Pain in right shoulder; M25.512 Pain in left shoulder; E66.3 Overweight

== ENCOUNTER 2025-07-27 08:33 | Outpatient (REF) | payer BC, SELFPAY ==
--- NOTE | ~2025-07-27 | XR_ITS ---
EXAMINATION: XR SHOULDER, BILATERAL CLINICAL INFORMATION: Bilateral shoulder pain. COMPARISON: None available. TECHNIQUE: AP external rotation, Grashey, scapular Y, and axillary views of the both shoulders. FINDINGS: Degenerative changes in the acromioclavicular joints and inferior clinoids of the scapula. Subchondral cyst formation in the glenoids of the scapula. No acute cortical disruption or malalignment. No lytic or blastic lesions. No soft tissue calcifications. No metallic or radiopaque foreign body. XR/XR Shoulder Juvencio min 2V IMPRESSION: Mild degenerative changes in the shoulders. Electronically signed by: Varghese Singh MD 07/27/2025 09:09 AM EDT RP
--- OUTSIDE RECORDS SUMMARY | 2025-07-27 08:54 | XMS_ITS | Clinical Summary ---
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 Not on tadeo e 02/19/2023 Are you concerned about learning? Not on file 02/19/2023 No 02/19/2023 No 02/19/2023 Digital Access Answer Date Recorded No 03/23/2023 No 03/23/2023 No 03/23/2023 Reliable internet access at home? Not on file 03/23/2023 Device with a working camera? Not on file Sex and Gender Information Value Date Recorded Sex Assigned at Not on file Legal Sex Male 2:48 PM EDT Gender Identity Not on file Sexual Orientation Not on file Plan of Treatment Not on file Medical Devices Not on file Insurance [facility] TOTAL CHOICE INDEMNITY [employer] TOTAL CHOICE INDEMNITY [employer] TOTAL CHOICE INDEMNITY [employer] TOTAL CHOICE [facility]ITY [facility] TOTAL CHOICE INDEMNITY [employer] [facility] TOTAL CHOICE INDEMNITY [employer] TOTAL CHOICE INDEMNITY [employer] TOTAL CHOICE INDEMNITY [employer] TOTAL CHOICE INDEMNITY Care Teams Work Measurement Engineer Relationship Specialty Start Date End Date Liberty Castaneda MD [address] [place] [address] PCP - General Internal Medicine 04/06/18 Additional Source Comments The information contained in this document represents components of the legal health record. It is not the complete legal health record.[facility]
== END 2025-07-27 08:34 | disposition home or self-care (01) ==
LOC: HO.HMGCX 08:33
PROVIDERS: PCP Internal Medicine; Visit Provider Internal Medicine
DX: M25.511 Pain in right shoulder (principal); M25.512 Pain in left shoulder
CPT/HCPCS: 73030

== ENCOUNTER → 2025-07-27 08:37 | Outpatient (BNV) | payer BC, SELFPAY | PROVIDERS: PCP Internal Medicine; Visit Provider Radiology Diagnostic Radiology | DX: M25.511 Pain in right shoulder (principal); M25.512 Pain in left shoulder | CPT/HCPCS: 73030 ==

== ENCOUNTER 2025-07-31 14:25 | Outpatient (AMB) | payer BC, SELFPAY ==
--- NOTE | 2025-07-31 14:30 | MHC.OFFVIS ---
Vital Signs 07/31/25 14:35 Height 5 ft 9 in Weight 151 lb BMI 22.3 Intake Visit Reasons: Right shoulder pain and weakness Intake Note: Desmond is a 50 year old male right hand dominant who presents with complaints of progressively worsening bilateral shoulder pains and weakness, right greater than left. The patient states that his right shoulder has been hurting him for over 30 years. He states that he injured both of his shoulders on several occasions while playing football and basketball in the past. He reports weakness when lifting his right hand above shoulder height. He has had cortisone injections in the past which gave him minimal relief. The patient has failed the last 6 weeks of conservative treatment which has included Tylenol, ibuprofen, physical therapy exercises and a home exercise program. At this point the patient's right shoulder pain and weakness is interfering with his activities of daily living and his ability to sleep well through the night. Allergies No Known Allergies Allergy (Verified 07/31/25 14:36) Medication List - Last Reconciled 07/31/25 by Cristino Escalera MD bisacodyl (Dulcolax (bisacodyl)) 20 mg (4 x 5 mg) PO ONCE 1 day ibuprofen 800 mg PO Q8H PRN polyethylene glycol 3350 (Miralax) 238 grams PO ONCE Zepbound (tirzepatide (weight loss)) 7.5 mg (0.5 mL) subcut QWEEK NS [facility] Medical History (Updated 07/31/25 @ 14:47 by Cristino Escalera MD) Overweight Annual physical exam Spinal stenosis Shoulder pain, bilateral Hyperglycemia Hyperlipidemia Numbness Back pain Arthritis Surgical History (Updated 07/19/25 @ 18:03 by Liberty Castaneda MD) S/P lumbar microdiscectomy History of back surgery History of esophagogastroduodenoscopy (EGD) Family History Father CVA (cerebral vascular accident), Onset Age: 50 Mother Urethral CA Family/Other Colon cancer Social History Household Members Other:: , 2 CHILDREN (17. 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 Cognitive needs: No Hearing needs: No Vision needs: Yes Physical Exam Const Other: Well-nourished well-developed very friendly male awake alert and oriented x3 in no acute distress Extrem Other: Right shoulder examination shows slightly decreased range of motion when compared to his left shoulder, 4+ out of 5 strength with supraspinatus testing, positive impingement signs, tenderness over his acromioclavicular joint, no instability Results Reviewed Results Reviewed: X-rays of the patient's bilateral shoulder show severe acromioclavicular joint narrowing, type 2 acromion, no acute bony abnormalities Assessment & Plan Assessment & Plan (1) Rotator cuff insufficiency of right shoulder: Code(s): M25.311 - Other instability, right shoulder Category: Medical Plan Mr. Bradley presents with bilateral shoulder pains and weakness, right greater than left, due to impingement syndrome and possible rotator cuff tearing. Thus, I will send the patient for an MRI of his right shoulder for further evaluation. I will see him back once the MRI is completed to discuss the findings and treatment options. Feel free to me at any time should questions regarding his orthopedic management arise. Thank you very much for asking me to see this very friendly gentleman. I spent 20 minutes in reviewing the patient's records and imaging studies, seeing the patient and documenting in the medical record. Orders: Orders MR shoulder RT wo con 08/01/25 M25.311 - Other instability, right shoulder Coding Level of Care Code New Pt Level 3 (19809) Complex EM visit Add On G2211 Diagnoses Rotator cuff insufficiency of right shoulder M25.311
[2025-07-31 14:35] VITALS: BMI 22.3
--- OUTSIDE RECORDS SUMMARY | 2025-07-31 17:46 | XMS_ITS | Clinical Summary ---
Author Organization [facility] Address [address] [place] [id number] Phone Care Team Providers Care Mixed Animal Veterinarian Name Role Phone Liberty Castaneda MD Primary Care Provider [phone] Social History Tobacco Use Types Packs/Day Years [...] file Medical Devices Not on file Insurance [facility] TOTAL CHOICE INDEMNITY [employer] TOTAL CHOICE INDEMNITY [employer] TOTAL CHOICE INDEMNITY [employer] TOTAL CHOICE [facility]ITY [facility] TOTAL CHOICE INDEMNITY [employer] [facility] TOTAL CHOICE INDEMNITY [employer] TOTAL CHOICE INDEMNITY [employer] TOTAL CHOICE INDEMNITY [employer] TOTAL CHOICE INDEMNITY Care Teams Mixed Animal Veterinarian Relationship Specialty Start Date End Date Liberty Castaneda MD [address] [place] [address] PCP - General Internal Medicine 04/06/18 Additional Source Comments The information contained in this document represents components of the legal health record. It is not the complete legal health record.[facility]
== END 2025-07-31 14:47 | disposition home or self-care (01) ==
LOC: HO.HOS 14:25
PROVIDERS: PCP Internal Medicine; Visit Provider Orthopaedic Surgery
DX: M25.311 Other instability, right shoulder (principal)
CPT/HCPCS: 99203

== ENCOUNTER → 2025-08-24 18:45 | Outpatient (BNV) | payer BC, SELFPAY | PROVIDERS: PCP Internal Medicine; Visit Provider Radiology Diagnostic Ultrasound | DX: M67.813 Other specified disorders of tendon, right shoulder (principal); M19.011 Primary osteoarthritis, right shoulder; M75.31 Calcific tendinitis of right shoulder; M75.32 Calcific tendinitis of left shoulder; S43.431A Superior glenoid labrum lesion of right shoulder, initial encounter; M75.21 Bicipital tendinitis, right shoulder | CPT/HCPCS: 73221 ==

== ENCOUNTER 2025-08-24 18:49 | Outpatient (REF) | payer BC, SELFPAY ==
--- NOTE | ~2025-08-24 | MR_ITS ---
EXAMINATION: MR SHOULDER WITHOUT CONTRAST, RIGHT CLINICAL INFORMATION: Shoulder instability COMPARISON: None available. TECHNIQUE: MRI of the shoulder without contrast was performed on a high-field scanner. FINDINGS: ROTATOR CUFF: Moderate-severe supraspinatus and infraspinatus tendinosis. No measurable tendon tear or retraction is seen. Teres minor is intact. Moderate subscapularis tendinosis. No muscle atrophy or fatty infiltration. BICEPS: Moderate tendinosis CORACOACROMIAL ARCH: The undersurface of the acromion is flat with no subacromial spur. Moderate acromioclavicular arthritis. LABRUM/CAPSULE: Increased signal and irregularity consistent with a irregular tear of the posterior labrum. 1.3 x 1 x 0.7 cm cyst inferiorly along the labrum, concerning for a para-labral cyst, raising the possibility of an underlying labral tear. GLENOHUMERAL JOINT/MARROW: No fracture. No suspicious marrow signal changes. No high-grade chondral loss. No axillary lymphadenopathy MR/MR shoulder RT wo con IMPRESSION: * Moderate-severe supraspinatus and infraspinatus tendinosis. No measurable tendon tear or retraction. * Moderate subscapularis tendinosis. * Posterior labral tear. 1.3 cm cyst along the inferior labrum, concerning for a para labral cyst, raising the possibility of an occult labral tear in this region. * Moderate biceps tendinosis. *Moderate acromioclavicular arthritis. Electronically signed by: Blayne Baeza MD 08/27/2025 07:30 AM [place]
--- OUTSIDE RECORDS SUMMARY | 2025-08-24 18:56 | XMS_ITS | Clinical Summary ---
Author Organization [facility] Address [address] [place] [address] Phone Care Team Providers Care Senior Director Marketing Name Role Phone Liberty Castaneda MD Primary Care Provider [phone] Social History Tobacco Use Types Packs/Day Years [...] file Medical Devices Not on file Insurance [facility] TOTAL CHOICE INDEMNITY [employer] TOTAL CHOICE IN[employer]MNITY [employer] TOTAL CHOICE INDEMNITY [employer] TOTAL CHOICE IN[facility]MNITY [facility] TOTAL CHOICE INDEMNITY [employer] [facility] TOTAL CHOICE INDEMNITY [employer] TOTAL CHOICE INDEMNITY [employer] TOTAL CHOICE IN[employer]MNITY [employer] TOTAL CHOICE INDEMNITY Care Teams Senior Director Marketing Relationship Specialty Start Date End Date Liberty Castaneda MD [address] [place], [place] [id number] PCP - General Internal Medicine 04/06/18 Additional Source Comments The information contained in this document represents components of the legal health record. It is not the complete legal health record.[facility]
== END 2025-08-24 18:50 | disposition home or self-care (01) ==
LOC: HO.MRI 18:49
PROVIDERS: PCP Internal Medicine; Visit Provider Orthopaedic Surgery
DX: M25.311 Other instability, right shoulder (principal); M67.813 Other specified disorders of tendon, right shoulder; S43.401A Unspecified sprain of right shoulder joint, initial encounter; R93.7 Abnormal findings on diagnostic imaging of other parts of musculoskeletal system; X58.XXXA Exposure to other specified factors, initial encounter; Y93.9 Activity, unspecified; Y92.9 Unspecified place or not applicable; Y99.9 Unspecified external cause status
CPT/HCPCS: 73221